=== PATIENT | female | born 2000 | race Caucasian/White ===

== ENCOUNTER 2018-06-15 17:02 | Emergency (ER) | payer OTHER ==
[~2018-06-15] VITALS: Ht 160 cm; Wt 46.7 kg
== END 2018-06-15 19:08 | disposition home or self-care (01) ==
LOC: ER 17:02
DX: B34.9 Viral infection, unspecified (principal); N39.0 Urinary tract infection, site not specified

== ENCOUNTER → 2018-08-29 | Emergency (ER) | payer OTHER ==
[~2018-08-29] VITALS: Ht 160 cm; Wt 46.7 kg
[~2018-08-29] MED LIST: CRYSELLE-28 TA1 EACH
== END | disposition home or self-care (01) ==
LOC: ER 21:09
DX: R59.0 Localized enlarged lymph nodes (principal); N76.0 Acute vaginitis